=== PATIENT | female | born 1980 | race Hispanic/Latino ===

== ENCOUNTER 2019-03-09 00:46 | Emergency (ER) | payer BC, MEDICAID ==
[2019-03-09 01:14] VITALS: TEMP 99.2
--- NOTE | 2019-03-09 01:53 | ED.PDOC ---
History of Present Illness - General Chief Complaint: CHIEF TECHNICAL OFFICER Problem Stated Complaint: vaginal bleeding, 5wks gestation Time Seen by Provider: 03/09/19 01:49 - History of Present Illness Initial Comments: Patient is a 39yo F who is approx 5 weeks who presents with vaginal spotting and lower abd cramping. She went to [facility] earlier [facility] and had an US performed where an IUP was not visualized. She was told that there is an "injection to stop the bleeding" and so came to this hospital to receive the injection. She has a f/u appt with her OBGYN later today. She is just here for an injection. She says the bleeding is spotting. Pain is crampy. She has had three previous spontaneous abortions. Allergies/Adverse Reactions: Allergies UNOBTAINABLE Allergy (Verified 03/09/19 01:14) Review of Systems - Review of Systems Constitutional: States: no symptoms reported EENTM: States: no symptoms reported Respiratory: States: no symptoms reported Cardiology: States: no symptoms reported Gastrointestinal/Abdominal: States: abdominal pain. Denies: nausea Genitourinary: States: no symptoms reported Musculoskeletal: States: no symptoms reported Skin: States: no symptoms reported Neurological: States: no symptoms reported Endocrine: States: no symptoms reported Hematologic/Lymphatic: States: no symptoms reported All other Systems: Reviewed and Negative Past Medical History (General) - Patient Medical History Hx Seizures: No Hx Stroke: No Hx Dementia: No Hx Asthma: No Hx of COPD: No Hx Cardiac Disorders: Yes - heart palpatations Hx Congestive Heart Failure: No Hx Pacemaker: No Hx Hypertension: Yes Hx Thyroid Disease: No Hx Diabetes: Yes Hx Gastroesophageal Reflux: No Hx Renal Disease: No Hx Cancer: No Hx of HIV: No Hx Hepatitis C: No Hx MRSA: No Surgical History: other - Social History Hx Alcohol Use: No - Female History Hx Last Menstrual Period: 02/01/19 Patient : Yes Family Medical History - Family History Mother Family History: Unknown Physical Exam - Physical Exam General Appearance: Alert, Emaciated Eye Exam: bilateral normal Ears, Nose, Throat: hearing grossly normal, normal ENT inspection Neck: full range of motion, supple Respiratory: lungs clear, normal breath sounds Cardiovascular/Chest: normal peripheral pulses, regular rate, rhythm Gastrointestinal/Abdominal: non tender, soft Extremity: non-tender, normal inspection Neurologic: no motor/sensory deficits, alert, normal mood/affect Skin Exam: normal color, warm/dry Progress - Progress Progress: 03/09/19 01:53 MDM Patient presenting reportedly 5 weeks w/ vaginal bleeding. Was seen at [facility] earlier [facility]. records were obtained demonstrating a bHCG of 0.17 and a pelvic US performed with no visualization of the . She is hear for an injection for the bleeding. Unclear what injection she is referring to. She has an appt with her OBGYN later today in addition to repeat US and labs scheduled. Advised patient that if she is having a miscarriage there is unfortunately nothing to do. Advised her to return to ER if she has worsening bleeding and to f/u with her OBGYN as scheduled. Patient is z[place] speaking only and conversation was held with a fluent delivery manager. Fritz Ventura MD #[id number] Departure - Departure Clinical Impression: Vaginal bleeding Disposition: Discharge to Home or Self Care Departure Forms: ED Discharge - Pt. Copy, Patient Portal Self Enrollment Referrals: JACQUELINE WANG [Primary Care Provider] - 1-2 Weeks
[2019-03-09 02:16] VITALS: BP 163/103; O2SAT 98
== END 2019-03-09 02:05 | disposition home or self-care (01) ==
LOC: ER 00:46
DX: O26.851 Spotting complicating pregnancy, first trimester (principal); O09.521 Supervision of elderly multigravida, first trimester; O10.911 Unspecified pre-existing hypertension complicating pregnancy, first trimester; I10 Essential (primary) hypertension; O24.111 Pre-existing type 2 diabetes mellitus, in pregnancy, first trimester; E11.9 Type 2 diabetes mellitus without complications; Z3A.01 Less than 8 weeks gestation of pregnancy